=== PATIENT | male | born 1940 | race Caucasian/White ===

== ENCOUNTER 2016-03-13 16:19 | Emergency (ER) | payer OTHER, MEDICARE ==
[2015-10-27 11:49] VITALS: Ht 180.3 cm; Wt 92.1 kg
[~2016-03-13] VITALS: Ht 180.3 cm; Wt 92.1 kg
[~2016-03-13 16:19] MED LIST: AMIT75TA2 PO; ASPI81TA2 PO; ATOR40TA68 PO; CORCR10 PO; DILT240C94 PO; GLU850 PO; HYDR12.55 PO; LEVO50TA77 PO; NPH,100V SUBCUT; VALS320T10 PO
[2016-03-13 16:36] VITALS: BP 110/60; PULSE 76; RESP 14; TEMP 98.9; O2SAT 98
[2016-03-13] MEDS ORDERED: ACETAMINOPHEN 325 MG TABLET PO ONE (16:45)
[2016-03-13 17:34] LABS: ANION GAP 6 (5-15); CALCIUM 9.1 mg/dL (8.4-11.0); CHLORIDE 105 mmol/L (98-107); CREATININE 1.62 mg/dL (0.55-1.30); GLUCOSE 178 mg/dL (70-99); HEMATOCRIT 37.4 % (36-54); HEMOGLOBIN 13.2 g/dL (14.0-18.0); MEAN CORPUSCULAR HEMOGLOBIN 32 pg (27-31); MEAN CORPUSCULAR HGB CONC 35 % (32-36); MEAN CORPUSCULAR VOLUME 90 fL (79.0-98.0); POTASSIUM 4.2 mmol/L (3.5-5.1); RED BLOOD CELL COUNT(AUTO) 4.17 MIL/uL (4.2-6.2); RED CELL DISTRIBUTION WIDTH 13.6 % (9.0-15.0); SODIUM SERUM 138 mmol/L (136-145); UREA NITROGEN, BLOOD 23 mg/dL (8-21); WHITE BLOOD COUNT (AUTO) 17.4 K/uL (4.8-10.8)
[2016-03-13 17:39] LABS: ALANINE AMINOTRANSFERASE 22 U/L (12-78); ALBUMIN 3.3 g/dL (3.4-4.8); ASPARTATE AMINOTRANSFERASE 21 U/L (10-37); TOTAL BILIRUBIN 0.6 mg/dL (0.0-1.0); TOTAL PROTEIN, SERUM 6.7 g/dL (6.4-8.3)
[2016-03-13 18:05] LABS: ATYPICAL LYMPHOCYTES % 0 % (0-0); BAND % (MANUAL) 1 % (0-6); BASOPHILS % (MANUAL) 0 % (0-2); EOSINOPHILS % (MANUAL) 0 % (0-7); LYMPHOCYTES % (MANUAL) 15 % (20-46); MONOCYTES % (MANUAL) 6 % (0-11)
[2016-03-13 18:12] LABS: PLATELET COUNT (AUTO) 206 K/uL (130-430)
[2016-03-13 19:10] VITALS: BP 150/72; PULSE 83; RESP 16; TEMP 98.9; O2SAT 98
== END 2016-03-13 19:10 | disposition home or self-care (01) ==
LOC: SED 16:19
DX: S42.001A Fracture of unspecified part of right clavicle, initial encounter for closed fracture (principal); S22.31XA Fracture of one rib, right side, initial encounter for closed fracture; E11.9 Type 2 diabetes mellitus without complications; D72.829 Elevated white blood cell count, unspecified; R51 Headache; I10 Essential (primary) hypertension; Z79.82 Long term (current) use of aspirin; Z86.79 Personal history of other diseases of the circulatory system; Z79.4 Long term (current) use of insulin; W10.9XXA Fall (on) (from) unspecified stairs and steps, initial encounter; Y93.01 Activity, walking, marching and hiking; Y92.89 Other specified places as the place of occurrence of the external cause; Y99.8 Other external cause status
CPT/HCPCS: 36415; 70450-TC; 71100; 73030; 80053; 84484; 85007; 85027; 93005; 99285

== ENCOUNTER 2016-06-22 15:45 | Outpatient (CLI) | payer OTHER, MEDICARE ==
[~2016-06-22 15:45] MED LIST changes: -GLU850 PO; -HYDR12.55 PO; -VALS320T10 PO
[2016-06-22 16:19] LABS: HEMOGLOBIN 13.8 g/dL (14.0-18.0); WHITE BLOOD COUNT (AUTO) 12.5 K/uL (4.8-10.8)
[2016-06-22 16:22] LABS: HEMATOCRIT 40.8 % (36-54); MEAN CORPUSCULAR HEMOGLOBIN 31 pg (27-31); MEAN CORPUSCULAR HGB CONC 34 % (32-36); MEAN CORPUSCULAR VOLUME 92 fL (79.0-98.0); RED BLOOD CELL COUNT(AUTO) 4.42 MIL/uL (4.2-6.2); RED CELL DISTRIBUTION WIDTH 12.6 % (9.0-15.0)
[2016-06-22 16:35] LABS: PLATELET COUNT (AUTO) 170 K/uL (130-430)
[2016-06-22 17:29] LABS: ATYPICAL LYMPHOCYTES % 0 % (0-0); BAND % (MANUAL) 0 % (0-6); BASOPHILS % (MANUAL) 0 % (0-2); EOSINOPHILS % (MANUAL) 2 % (0-7); LYMPHOCYTES % (MANUAL) 25 % (20-46); MONOCYTES % (MANUAL) 13 % (0-11)
== END 2016-06-22 20:50 | disposition home or self-care (01) ==
LOC: SLB 15:45
DX: D69.1 Qualitative platelet defects (principal)
CPT/HCPCS: 36415; 85007; 85027

== ENCOUNTER 2020-04-05 16:02 | Emergency (ER) | payer OTHER, MEDICARE, SELFPAY ==
[~2020-04-05] VITALS: Ht 180.3 cm; Wt 75.7 kg
[2020-04-05 16:02] VITALS: BP_SYST 165
[~2020-04-05 16:02] MED LIST changes: +ASPI-1155 PO; -ASPI81TA2 PO; -LEVO50TA77 PO; +SYN50 PO
[2020-04-05] MEDS ORDERED: NACL 0.9% 1,000 ML IV ONE (18:30)
[2020-04-05 18:33] LABS: BASOPHILS % (AUTO) 0.2 % (0.0-2.0); EOSINOPHILS # (AUTO) 0.1 K/uL (0.0-0.4); EOSINOPHILS % (AUTO) 0.4 % (0.0-4.0); HEMOGLOBIN 13.7 g/dL (14.0-18.0); LYMPHOCYTES # (AUTO) 1.2 K/uL (1.0-5.5); LYMPHOCYTES % (AUTO) 9.5 % (20.5-51.5); MEAN CORPUSCULAR HEMOGLOBIN 31 pg (27-31); MEAN CORPUSCULAR HGB CONC 33 % (32-36); MEAN CORPUSCULAR VOLUME 93 fL (79.0-98.0); MONOCYTES # (AUTO) 1.1 K/uL (0.0-1.0); MONOCYTES % (AUTO) 8.4 % (1.7-9.3); NEUTROPHILS # (AUTO) 10.3 K/uL (1.8-7.7); NEUTROPHILS % (AUTO) 81.5 % (40.0-70.0); RED BLOOD CELL COUNT(AUTO) 4.41 MIL/uL (4.2-6.2); RED CELL DISTRIBUTION WIDTH 13.6 % (9.0-15.0); WHITE BLOOD COUNT (AUTO) 12.7 K/uL (4.8-10.8)
[2020-04-05 18:38] LABS: ANION GAP 2 (5-15); CALCIUM 8.8 mg/dL (8.4-11.0); CHLORIDE 104 mmol/L (98-107); CREATININE 1.91 mg/dL (0.55-1.30); GLUCOSE 134 mg/dL (70-99); SODIUM SERUM 135 mmol/L (136-145); UREA NITROGEN, BLOOD 28 mg/dL (8-21)
[2020-04-05 18:43] LABS: ALANINE AMINOTRANSFERASE 17 U/L (12-78); ALBUMIN 3.1 g/dL (3.4-4.8); ASPARTATE AMINOTRANSFERASE 19 U/L (10-37); TOTAL BILIRUBIN 0.6 mg/dL (0.0-1.0)
[2020-04-05 18:52] LABS: PROTHROMBIN TIME 10.3 SECS (9.5-12.5)
[2020-04-05 19:11] LABS: BILIRUBIN,URINE NEGATIVE (NEGATIVE); BLOOD, URINE NEGATIVE (NEGATIVE); CLARITY/URINE CLEAR (CLEAR); COLOR,URINE YELLOW (YELLOW); GLUCOSE,URINE NEGATIVE (NEGATIVE); KETONES,URINE NEGATIVE (NEGATIVE); LEUKOCYTE ESTERASE ,URINE NEGATIVE (NEGATIVE); NITRITE, URINE NEGATIVE (NEGATIVE); PH,URINE 7.5 (5.0-8.0); PROTEIN URINE NEGATIVE (NEGATIVE)
[2020-04-05 19:51] LABS: PLATELET COUNT (AUTO) 173 K/uL (130-430)
[2020-04-05 21:28] VITALS: BP_SYST 152
== END 2020-04-05 21:28 | disposition home or self-care (01) ==
LOC: SED 16:02
DX: N20.1 Calculus of ureter (principal); R10.32 Left lower quadrant pain; I10 Essential (primary) hypertension; E11.29 Type 2 diabetes mellitus with other diabetic kidney complication; N28.9 Disorder of kidney and ureter, unspecified; E78.5 Hyperlipidemia, unspecified; E03.9 Hypothyroidism, unspecified; Z79.899 Other long term (current) drug therapy; Z79.82 Long term (current) use of aspirin; Z20.822 Contact with and (suspected) exposure to COVID-19
CPT/HCPCS: 36415; 71045; 76376; 80053; 81003; 82962; 83605; 85025; 85610-TC; 85730-TC; 87040-TC; 93005; 96360; 99285

== ENCOUNTER 2022-01-02 07:36 | Inpatient (IN) | payer OTHER, MEDICARE ==
[~2022-01-02] VITALS: Ht 177.8 cm; Wt 59.0 kg
--- NOTE | 2022-01-02 07:38 | NUR ---
BIB EMS FROM HOME AFTR FALL WHILE GETTING OUT OF BED. PLACED IN BED. REPORT GIVEN TO ODNNA OCASIO.
[2022-01-02 07:40] VITALS: BP_SYST 142
--- NOTE | 2022-01-02 07:40 | NUR ---
GEOFF Badillo at bedside examining patient.
[2022-01-02] MEDS ORDERED: BACITRACIN 1 GM OINT TP ONE (07:45)
[2022-01-02] MEDS ORDERED: ASPIRIN 81 MG TAB.CHEW PO ONE (07:45)
--- NOTE | 2022-01-02 07:50 | NUR ---
PATIENT BIBA TO ER FROM HOME C/O LEFT HIP PAIN S/P FALL TRYING TO GET UP TO GO TO THE BATHROOM, AAOX4 HX OF HTN AND DM, PATIENT DENIES SOB DENIES C/P AWAITING FOR EDP FOR INITIAL ASSESSMENT.
--- NOTE | 2022-01-02 08:09 | NUR ---
EDP SEEN PATIENT WITH ORDER KALPESH OUT. IV, INSERTED, PATIENT ON OFFICE LEAD, WOUND CLEANSED, BLOOD DRAWN , WILL CONTINUE TO MONITOR.
[2022-01-02 08:25] LABS: ANION GAP 5 (5-15); BASOPHILS # (AUTO) 0.1 K/uL (0.0-0.2); BASOPHILS % (AUTO) 0.6 % (0.0-2.0); CALCIUM 9.2 mg/dL (8.4-11.0); CHLORIDE 102 mmol/L (98-107); CREATININE 2.65 mg/dL (0.55-1.30); EOSINOPHILS # (AUTO) 0.2 K/uL (0.0-0.4); EOSINOPHILS % (AUTO) 1.9 % (0.0-4.0); GLUCOSE 176 mg/dL (70-99); HEMATOCRIT 27.7 % (36-54); HEMOGLOBIN 9.2 g/dL (14.0-18.0); LYMPHOCYTES # (AUTO) 1.1 K/uL (1.0-5.5); LYMPHOCYTES % (AUTO) 11.3 % (20.5-51.5); MEAN CORPUSCULAR HEMOGLOBIN 31 pg (27-31); MEAN CORPUSCULAR HGB CONC 33 % (32-36); MEAN CORPUSCULAR VOLUME 92 fL (79.0-98.0); MONOCYTES # (AUTO) 0.9 K/uL (0.0-1.0); MONOCYTES % (AUTO) 9.3 % (1.7-9.3); NEUTROPHILS # (AUTO) 7.5 K/uL (1.8-7.7); NEUTROPHILS % (AUTO) 76.9 % (40.0-70.0); RED BLOOD CELL COUNT(AUTO) 3.01 MIL/uL (4.2-6.2); UREA NITROGEN, BLOOD 50 mg/dL (8-21); WHITE BLOOD COUNT (AUTO) 9.8 K/uL (4.8-10.8)
[2022-01-02 08:33] LABS: ALANINE AMINOTRANSFERASE 15 U/L (12-78); ALBUMIN 2.5 g/dL (3.4-4.8); ASPARTATE AMINOTRANSFERASE 17 U/L (10-37); TOTAL BILIRUBIN 0.5 mg/dL (0.0-1.0)
[2022-01-02 08:52] LABS: PLATELET COUNT (AUTO) 210 K/uL (130-430)
--- NOTE | 2022-01-02 09:05 | NUR ---
covid swab obtained and sent to lab.
[2022-01-02] MEDS ORDERED: NACL 0.9% 1,000 ML IV ONE (09:30)
[2022-01-02] MEDS ORDERED: MORPHINE 2 MG/ML INJ. SYRINGE IVP PRN ×2 (09:45)
[2022-01-02] MEDS ORDERED: DOCUSATE SODIUM 100 MG CAPSULE PO PRN (09:45)
[2022-01-02] MEDS ORDERED: MUPIROCIN 2% TOPICAL OINTMENT 22 GM NS PRN (09:45)
[2022-01-02] MEDS ORDERED: POTASSIUM CHLORIDE 20 MEQ TAB.PRT.SR PO PRN (09:45)
[2022-01-02] MEDS ORDERED: ACETAMINOPHEN 325 MG TABLET PO PRN (09:45)
[2022-01-02] MEDS ORDERED: ONDANSETRON HCL 4 MG/2 ML VIAL IVP PRN (09:45)
[2022-01-02] MEDS ORDERED: LORazepam 2 MG/ML VIAL IVP PRN (09:45)
[2022-01-02] MEDS ORDERED: MAGNESIUM SULFATE 50 ML IV PRN (09:45)
[2022-01-02] MEDS ORDERED: ZOLPIDEM TARTRATE 5 MG TABLET PO PRN (09:45)
--- NOTE | 2022-01-02 09:58 | NUR ---
Admit bed requested Patient will be admitted to care of . Admitted to [facility] unit. Diagnosis HIP FX Inpatient (Yes or No) YES Observation (Yes or No) NO Orientation concerns or request close to nursing station (Yes or No) NO Covid Status PENDING On vent or bipap NO Isolation requirements NO Needs a sitter NO From Home (Yes or if No enter name of facility) HOME Requires Dialysis (Yes or No) NO Med Rec Completed (Yes of No) YES
--- NOTE | 2022-01-02 10:08 | NUR ---
admitting physician at bedside for initial assessment, will continue to monitor.
--- NOTE | 2022-01-02 11:00 | NUR ---
patient is back from ct, remains in bed on cardiac cath lab manager.
--- NOTE | 2022-01-02 12:28 | NUR ---
PATIENT REMAINS IN BED, ON TOOL SETTER, WILL CONTINUE TO MONITOR.
[2022-01-02] MEDS ORDERED: DEXTROSE 50% JECT 50 ML DISP.SYRIN IVP PRN (12:45)
[2022-01-02] MEDS ORDERED: IPRATROPIUM/ALBUTEROL SULFATE 3 ML AMPUL.NEB (DUONEB) INH PRN (12:45)
--- NOTE | 2022-01-02 13:00 | NUR ---
patient refuses day at this time, because his urologyst will need to be informed.
--- NOTE | 2022-01-02 15:09 | NUR ---
Patient will be admitted to care of Dr Díaz. Admitted to unit. Will go to room . Belongings list completed. Complete and up to date summary report printed. SBAR report to be given at bedside with opportunity for questions.
--- NOTE | 2022-01-02 15:12 | NUR ---
report given to j luis Wellington
--- NOTE | 2022-01-02 16:47 | NUR ---
receive the patient from [facility] the emergency room nurse in a stable condition with admitting diagnosis of left hip fracture aox4 / no sign and symptoms of respiratory distress . will continue to monitor
--- NOTE | 2022-01-02 17:10 | NUR ---
md stubbs made rounds made some orders . noted and carried out
[2022-01-02] MEDS: INSULIN LISPRO SLIDING SCALE 100 UNITS/ML, 3 ML VIAL (humaLOG) SUBCUT PRN ×2 (18:32→20:39)
[2022-01-02] MEDS: D5NS 1,000 ML IV SCH ×2 (18:42→22:55)
--- NOTE | 2022-01-02 18:50 | NUR ---
will endorse to process camera operator rn for continuity of care
[2022-01-02 20:00] VITALS: BP_SYST 152
[2022-01-02] MEDS: DILTIAZEM HCL 240 MG CAP.SR.24H PO SCH (20:36)
[2022-01-02] MEDS: ASPIRIN 81 MG TAB.CHEW PO SCH (20:36)
[2022-01-02] MEDS: AMITRIPTYLINE HCL 25 MG TABLET (ELAVIL) PO SCH (20:36)
[2022-01-02] MEDS: CARVEDILOL 3.125 MG TABLET (COREG) PO SCH (20:37)
[2022-01-02] MEDS: HEPARIN SODIUM,PORCINE 5,000 UNITS/ML VIAL SUBCUT SCH (20:40)
[2022-01-02] MEDS ORDERED: CARVEDILOL PHOSPHATE 10 MG CPMP.24HR ( COREG CR) PO SCH (21:00)
[2022-01-03] VITALS: BP_SYST 148
[2022-01-03] MEDS: LEVOTHYROXINE SODIUM 0.05 MG TABLET PO SCH (06:19)
--- NOTE | 2022-01-03 06:44 | NUR ---
Shift Summary: patient is AAOX3-4. vitals are stable. a5vdyiv done during shift. day care done. patient updated on plan of care. patient states he has no questions or concerns at this time. will endorse to oncoming nurse. call light within reach, bed set to low, locked, and alarm on.
[2022-01-03 07:00] VITALS: BP_SYST 132
--- NOTE | 2022-01-03 07:09 | NUR ---
receive the patient in a stable condition with admitting diagnosis of left hip fracture . aox4 . no complain of pain at this time . no sign and symptoms of respiratory distress . will continue to monitor
[2022-01-03 07:21] LABS: ALANINE AMINOTRANSFERASE 9 U/L (12-78); ANION GAP 7 (5-15); ASPARTATE AMINOTRANSFERASE 17 U/L (10-37); CHLORIDE 105 mmol/L (98-107); CREATININE 2.62 mg/dL (0.55-1.30); GLUCOSE 191 mg/dL (70-99); TOTAL BILIRUBIN 0.6 mg/dL (0.0-1.0); UREA NITROGEN, BLOOD 48 mg/dL (8-21)
[2022-01-03 07:52] LABS: BASOPHILS # (AUTO) 0.1 K/uL (0.0-0.2); BASOPHILS % (AUTO) 0.6 % (0.0-2.0); EOSINOPHILS # (AUTO) 0.1 K/uL (0.0-0.4); EOSINOPHILS % (AUTO) 1.3 % (0.0-4.0); HEMATOCRIT 24.8 % (36-54); HEMOGLOBIN 8.5 g/dL (14.0-18.0); LYMPHOCYTES # (AUTO) 1.2 K/uL (1.0-5.5); LYMPHOCYTES % (AUTO) 12.6 % (20.5-51.5); MEAN CORPUSCULAR HEMOGLOBIN 31 pg (27-31); MEAN CORPUSCULAR HGB CONC 34 % (32-36); MEAN CORPUSCULAR VOLUME 91 fL (79.0-98.0); MONOCYTES # (AUTO) 1.1 K/uL (0.0-1.0); MONOCYTES % (AUTO) 11.9 % (1.7-9.3); NEUTROPHILS # (AUTO) 6.7 K/uL (1.8-7.7); NEUTROPHILS % (AUTO) 73.6 % (40.0-70.0); RED BLOOD CELL COUNT(AUTO) 2.72 MIL/uL (4.2-6.2); RED CELL DISTRIBUTION WIDTH 13.9 % (9.0-15.0); WHITE BLOOD COUNT (AUTO) 9.1 K/uL (4.8-10.8)
[2022-01-03] MEDS: CARVEDILOL 3.125 MG TABLET (COREG) PO SCH ×2 (08:20→21:37)
[2022-01-03] MEDS: HEPARIN SODIUM,PORCINE 5,000 UNITS/ML VIAL SUBCUT SCH (08:21)
[2022-01-03] MEDS: D5NS 1,000 ML IV SCH ×2 (08:26→21:37)
[2022-01-03 09:38] LABS: PLATELET COUNT (AUTO) 168 K/uL (130-430)
[2022-01-03 12:53] LABS: BILIRUBIN,URINE NEGATIVE (NEGATIVE); BLOOD, URINE 3+ (NEGATIVE); CLARITY/URINE SL CLOUDY (CLEAR); COLOR,URINE RED (YELLOW); GLUCOSE,URINE TRACE (NEGATIVE); KETONES,URINE TRACE (NEGATIVE); LEUKOCYTE ESTERASE ,URINE NEGATIVE (NEGATIVE); NITRITE, URINE POSITIVE (NEGATIVE); PH,URINE 7.5 (5.0-8.0); PROTEIN URINE 3+ (NEGATIVE); UROBILINOGEN,URINE 0.2 (0.2-1.0)
[2022-01-03 13:06] LABS: RBC,URINE 20-50 /HPF (0-3)
[2022-01-03 13:07] LABS: BACTERIA,URINE FEW /HPF (None Seen)
[2022-01-03] MEDS: INSULIN LISPRO SLIDING SCALE 100 UNITS/ML, 3 ML VIAL (humaLOG) SUBCUT PRN (14:52)
--- NOTE | 2022-01-03 18:58 | NUR ---
will endorse to shift commander rn for left hip hemiarthroplasty tomorrow . consent has been signed . NPO midnight . no complain at this time . no signa and symptoms of respiratory distress .
--- NOTE | 2022-01-03 19:30 | NUR ---
OPENING NOTE Received report from day shift. Pt is awake lying in bed with at bedside. No s/s of respiratory distress. Breathing even and unlabored on RA. Ng catheter intact and draining by gravity. IV site intact and patent with fluids running at ordered rate. Fall and safety precautions in place with bed in lowest position, bed alarm on, and call light within reach
[2022-01-03 20:00] VITALS: BP_SYST 152
[2022-01-03] MEDS: DILTIAZEM HCL 240 MG CAP.SR.24H PO SCH (21:37)
[2022-01-03] MEDS: AMITRIPTYLINE HCL 25 MG TABLET (ELAVIL) PO SCH (21:37)
[2022-01-03] MEDS: ASPIRIN 81 MG TAB.CHEW PO SCH (21:37)
--- NOTE | 2022-01-04 00:15 | NUR ---
ROUNDS Pt is lying in bed, eyes closed. No s/s of acute distress. NPO for surgery in the AM. Fall and safety checks in place.
--- NOTE | 2022-01-04 02:00 | NUR ---
BLOOD TRANSFUSION CONSENT Received consent from Conner (son) for 1 unit of PRBCs. , Angelina (person to notify), did not answer
[2022-01-04 02:30] VITALS: BP_SYST 142
--- NOTE | 2022-01-04 05:35 | NUR ---
BLOOD TRANSFUSION 1 UNIT OF PRBCS INITIATED. VSS.
[2022-01-04] MEDS: LEVOTHYROXINE SODIUM 0.05 MG TABLET PO SCH (06:26)
--- NOTE | 2022-01-04 06:44 | NUR ---
CLOSING NOTE Pt awake lying in bed. No s/s of respiratory distress. Breathing even and unlabored on RA. 1 unit of PRBCs transfusing. Pt is NPO for surgery today. All needs met throughout shift. Fall and safety precautions in place with bed in lowest position, bed alarm on, and call light within reach
[2022-01-04 06:45] LABS: BASOPHILS # (AUTO) 0.1 K/uL (0.0-0.2); BASOPHILS % (AUTO) 0.7 % (0.0-2.0); EOSINOPHILS # (AUTO) 0.2 K/uL (0.0-0.4); EOSINOPHILS % (AUTO) 2.5 % (0.0-4.0); HEMOGLOBIN 7.2 g/dL (14.0-18.0); LYMPHOCYTES # (AUTO) 1.2 K/uL (1.0-5.5); LYMPHOCYTES % (AUTO) 14.5 % (20.5-51.5); MEAN CORPUSCULAR HEMOGLOBIN 31 pg (27-31); MEAN CORPUSCULAR HGB CONC 34 % (32-36); MEAN CORPUSCULAR VOLUME 92 fL (79.0-98.0); MONOCYTES # (AUTO) 1.2 K/uL (0.0-1.0); MONOCYTES % (AUTO) 13.6 % (1.7-9.3); NEUTROPHILS # (AUTO) 5.9 K/uL (1.8-7.7); NEUTROPHILS % (AUTO) 68.7 % (40.0-70.0); RED BLOOD CELL COUNT(AUTO) 2.32 MIL/uL (4.2-6.2); RED CELL DISTRIBUTION WIDTH 13.9 % (9.0-15.0); WHITE BLOOD COUNT (AUTO) 8.6 K/uL (4.8-10.8)
[2022-01-04 07:00] VITALS: BP_SYST 106
[2022-01-04 07:03] LABS: ANION GAP 6 (5-15); CALCIUM 7.6 mg/dL (8.4-11.0); CHLORIDE 105 mmol/L (98-107); CREATININE 2.44 mg/dL (0.55-1.30); GLUCOSE 209 mg/dL (70-99); UREA NITROGEN, BLOOD 45 mg/dL (8-21)
[2022-01-04] MEDS ORDERED: BUPIVACAINE /PF 0.25% 30 ML VIAL INJ ONE (07:30)
[2022-01-04] MEDS ORDERED: LIDOCAINE 1% 10 MG/ML, 20 ML MDV INJ ONE (07:30)
[2022-01-04] MEDS ORDERED: TRANEXAMIC ACID 1,000 MG/10 ML VIAL IV ONE (07:30)
[2022-01-04] MEDS ORDERED: ONDANSETRON HCL 4 MG/2 ML VIAL IVP ONE (07:30)
[2022-01-04] MEDS ORDERED: MIDAZOLAM HCL 5 MG/5 ML VIAL IVP ONE (07:30)
[2022-01-04] MEDS ORDERED: fentaNYL CITRATE 250 MCG/5 ML AMP IV ONE (07:30)
[2022-01-04] MEDS ORDERED: NS 1000 ML IV.SOLN IV ONE (07:30)
[2022-01-04] MEDS ORDERED: CEFAZOLIN 2 GM IVPB PREMIX 50 ML IV ONE (07:30)
[2022-01-04] MEDS ORDERED: BUPIVACAINE /EPINEPHRINE/PF 0.25% 30 ML VIAL INJ ONE (07:30)
[2022-01-04] MEDS ORDERED: SUGAMMADEX SODIUM 200 MG/2 ML VIAL IV ONE (07:30)
[2022-01-04] MEDS ORDERED: DESFLURANE 15 MIN GAS INH ONE (07:30)
[2022-01-04] MEDS ORDERED: ROCURONIUM BROMIDE 10 MG/ML (ZEMURON) IV ONE (07:30)
[2022-01-04] MEDS ORDERED: PROPOFOL 200MG/ 20ML VIAL (DIPRIVAN) IV ONE (07:30)
[2022-01-04 07:34] LABS: PLATELET COUNT (AUTO) 172 K/uL (130-430)
[2022-01-04 07:35] LABS: HEMATOCRIT 21.3 % (36-54)
[2022-01-04] MEDS ORDERED: ACETAMINOPHEN I.V. 1000 MG 100 ML IV ONE (08:40)
[2022-01-04] MEDS ORDERED: METOCLOPRAMIDE HCL 10 MG/2 ML VIAL IVP PRN (08:45)
[2022-01-04] MEDS ORDERED: LABETALOL 100 MG/ 20ML VIAL IVP PRN (08:45)
[2022-01-04] MEDS ORDERED: HYDROmorphone 1 MG/ML INJ. CARTRIDGE IVP PRN ×2 (08:45)
[2022-01-04] MEDS ORDERED: NACL 0.9% 1,000 ML IV SCH (08:45)
[2022-01-04] MEDS ORDERED: MIDAZOLAM HCL 2 MG/2 ML VIAL (VERSED) IVP PRN (08:45)
[2022-01-04] MEDS ORDERED: MEPERIDINE HCL/PF 25 MG/ML DISP.SYRIN IVP PRN (08:45)
[2022-01-04] MEDS ORDERED: hydrALAZINE HCL 20 MG/ML VIAL IVP PRN (08:45)
[2022-01-04] MEDS: CARVEDILOL 3.125 MG TABLET (COREG) PO SCH ×2 (09:00→21:00)
[2022-01-04 12:00] VITALS: BP_SYST 140
[2022-01-04] MEDS: INSULIN LISPRO SLIDING SCALE 100 UNITS/ML, 3 ML VIAL (humaLOG) SUBCUT PRN ×2 (13:07→18:20)
[2022-01-04] MEDS: SOD FERRIC GLUC COMPLEX/SUC 125 MG in NS 100 ML IV SCH (13:08)
[2022-01-04] MEDS: D5NS 1,000 ML IV SCH (13:10)
[2022-01-04 13:45] LABS: HEMATOCRIT 32.3 % (36-54); HEMOGLOBIN 11.1 g/dL (14.0-18.0)
[2022-01-04] MEDS ORDERED: ceFAZolin SODIUM 2 GM in D5W 100 ML IV SCH (14:00)
--- NOTE | 2022-01-04 14:03 | NUR ---
PHYSICAL THERAPY ORDER RECEIVED. PATIENT IS TOO SLEEPY TO PARTICIPATE IN THE EVALUATION TODAY. WILL ATTEMPT TOMORROW.
[2022-01-04] MEDS: ceFAZolin SODIUM 1 GM in D5W 50 ML IV SCH (15:29)
[2022-01-04] MEDS ORDERED: EPOETIN ALFA 10,000 UNITS/ML VIAL SUBCUT ONE (17:00)
[2022-01-04 20:00] VITALS: BP_SYST 116
[2022-01-04] MEDS: ASPIRIN 81 MG TAB.CHEW PO SCH (21:00)
[2022-01-04] MEDS: DILTIAZEM HCL 240 MG CAP.SR.24H PO SCH (21:00)
[2022-01-04] MEDS: AMITRIPTYLINE HCL 25 MG TABLET (ELAVIL) PO SCH (21:00)
[2022-01-05] MEDS: D5NS 1,000 ML IV SCH ×2 (00:15→09:10)
[2022-01-05 00:35] VITALS: BP_SYST 126
[2022-01-05] MEDS: INSULIN LISPRO SLIDING SCALE 100 UNITS/ML, 3 ML VIAL (humaLOG) SUBCUT PRN ×2 (01:06→18:31)
[2022-01-05] MEDS: ceFAZolin SODIUM 1 GM in D5W 50 ML IV SCH ×2 (01:52→14:56)
[2022-01-05 06:43] LABS: BASOPHILS % (AUTO) 0.2 % (0.0-2.0); EOSINOPHILS % (AUTO) 0.3 % (0.0-4.0); HEMATOCRIT 31.6 % (36-54); HEMOGLOBIN 10.8 g/dL (14.0-18.0); LYMPHOCYTES # (AUTO) 0.6 K/uL (1.0-5.5); LYMPHOCYTES % (AUTO) 7.3 % (20.5-51.5); MEAN CORPUSCULAR HEMOGLOBIN 30 pg (27-31); MEAN CORPUSCULAR HGB CONC 34 % (32-36); MEAN CORPUSCULAR VOLUME 89 fL (79.0-98.0); MONOCYTES # (AUTO) 1.2 K/uL (0.0-1.0); MONOCYTES % (AUTO) 13.2 % (1.7-9.3); NEUTROPHILS # (AUTO) 6.9 K/uL (1.8-7.7); RED BLOOD CELL COUNT(AUTO) 3.57 MIL/uL (4.2-6.2); RED CELL DISTRIBUTION WIDTH 16.3 % (9.0-15.0); WHITE BLOOD COUNT (AUTO) 8.8 K/uL (4.8-10.8)
[2022-01-05 06:56] LABS: ANION GAP 7 (5-15); CALCIUM 7.1 mg/dL (8.4-11.0); CHLORIDE 108 mmol/L (98-107); CREATININE 2.16 mg/dL (0.55-1.30); GLUCOSE 173 mg/dL (70-99); UREA NITROGEN, BLOOD 42 mg/dL (8-21)
[2022-01-05] MEDS: LEVOTHYROXINE SODIUM 0.05 MG TABLET PO SCH (07:02)
[2022-01-05 08:00] VITALS: BP_SYST 156; BP_SYST 167
[2022-01-05 08:37] VITALS: BP_SYST 126
[2022-01-05] MEDS: HEPARIN SODIUM,PORCINE 5,000 UNITS/ML VIAL SUBCUT SCH ×2 (09:00→21:28)
[2022-01-05 09:17] LABS: PLATELET COUNT (AUTO) 118 K/uL (130-430)
[2022-01-05] MEDS: CARVEDILOL 3.125 MG TABLET (COREG) PO SCH ×2 (10:06→21:26)
[2022-01-05 11:56] VITALS: BP_SYST 138
[2022-01-05] MEDS: SOD FERRIC GLUC COMPLEX/SUC 125 MG in NS 100 ML IV SCH (12:00)
--- NOTE | 2022-01-05 15:31 | NUR ---
Attending Md Dr Díaz was called to inform him that pt is lethargic and urine bag is dark red. Left a voice message.
[2022-01-05 16:59] VITALS: BP_SYST 161
[2022-01-05 19:25] VITALS: BP_SYST 143
--- NOTE | 2022-01-05 19:25 | NUR ---
PM ASSESSMENT; -Pt is lethargic, arousable upon voice. NO s/s any pain,sob,or any acute distress noted. IV site patent drsg cdi. Left hip old small blood stained drsg, no active bleeding noted. DIscussed poc, all safety measures with pt & spouse at bedside, spouse verbalized understanding. Fall precaution in place. Ng cath w/ gravity drains dark blood noted. Call light w/in reach, bed alarmed, near Nurses' station, side rails x3. Cont to monitor pt.
--- NOTE | 2022-01-05 20:13 | NUR ---
PATIENT MUCH BETTER THIS EVENING IMPROVING GREATLY FROM THIS MORNING. CONTINUE'S WITH RESPIRATORY TREATMENT'S STEROIDS. CONTINUES TO COUGH MUCH LESS ABLE TO GET OUT OF BED WALK AROUND WITH OUT DIFFICULTY. CONTINUE PLAN OF CARE UNTIL PATIENT ABLE TO GO BACK TO FACILITY. COMPLIANT AND COOPERATIVE. FAMILY TO BRING [facility] TOMORROW. PATIENT DOES NOT HAVE MUCH CONTACT WITH FAMILY WHEN FAMILY NOTIFIED NEVER ASKED ABOUT PATIENT. REQUESTING SUPERVISOR FINE GRADING TO TALK TO FELIZ'S NOT WANT TO GO BACK TO FACILITY.
--- NOTE | 2022-01-05 20:38 | NUR ---
CHARTED ON WRONG PATIENT CROSS OUT NOTE WRONG PATIENT
--- NOTE | 2022-01-05 20:39 | NUR ---
POST OP DAY ON PATIENT CONTINUES TO BE LETHARGIC WAKING UP MORE AT END OF SHIFT ABLE TO TAKE SMALL AMOUNT OF DINNER AND DRINKING ENSURE. AT BEDSIDE THROUGH OUT DAY URINE FROM PHAM CONTINUES TO BE BLOODY PATIENTS DR AWARE OF BLOODY URINE AND TOLD FAMILY MEMBER SON NOT TO BE ALARMED WELL NURSE. PLAN OF CARE GET PATIENT MOVING TOMORROW UP OUT OF BED TOLERATED
[2022-01-05] MEDS: AMITRIPTYLINE HCL 25 MG TABLET (ELAVIL) PO SCH (21:00)
[2022-01-05] MEDS: DILTIAZEM HCL 240 MG CAP.SR.24H PO SCH (21:25)
[2022-01-05] MEDS: ASPIRIN 81 MG TAB.CHEW PO SCH (21:25)
--- NOTE | 2022-01-05 21:43 | NUR ---
ROUNDS; -Pt is resting in bed comfortably. Pt is little more awaked but still lethargic. Spouse is at bedside. No s/s any pain,sob,or any acute distress noted. Gave all meds with applesauce, pt tolerated well. IVF infusing well. bed alarmed, side rails x3, call light w/in reach. Cont to monitor pt.
--- NOTE | 2022-01-06 00:25 | NUR ---
ROUNDS; -Pt is asleep in bed comfortably. No s/s any pain,sob,or any acute distress noted. No visitor is at bedside this time. IVF infusing well. bed alarmed, side rails x3, call light w/in reach. Cont to monitor pt.
[2022-01-06 00:57] VITALS: BP_SYST 156
[2022-01-06] MEDS: ceFAZolin SODIUM 1 GM in D5W 50 ML IV SCH ×2 (03:19→15:06)
[2022-01-06] MEDS: D5NS 1,000 ML IV SCH ×2 (03:19→15:07)
--- NOTE | 2022-01-06 04:30 | NUR ---
ROUNDS; -Pt is asleep in bed comfortably. No s/s any pain,sob,or any acute distress noted. IVF infusing well. bed alarmed, side rails x3, call light w/in reach. Cont to monitor pt.
[2022-01-06] MEDS: LEVOTHYROXINE SODIUM 0.05 MG TABLET PO SCH (06:30)
[2022-01-06 06:47] LABS: BASOPHILS % (AUTO) 0.4 % (0.0-2.0); EOSINOPHILS # (AUTO) 0.1 K/uL (0.0-0.4); EOSINOPHILS % (AUTO) 1.4 % (0.0-4.0); HEMATOCRIT 30.1 % (36-54); HEMOGLOBIN 10.3 g/dL (14.0-18.0); LYMPHOCYTES % (AUTO) 11.7 % (20.5-51.5); MEAN CORPUSCULAR HEMOGLOBIN 30 pg (27-31); MEAN CORPUSCULAR HGB CONC 34 % (32-36); MEAN CORPUSCULAR VOLUME 88 fL (79.0-98.0); MONOCYTES # (AUTO) 1.2 K/uL (0.0-1.0); MONOCYTES % (AUTO) 14.7 % (1.7-9.3); NEUTROPHILS # (AUTO) 5.9 K/uL (1.8-7.7); NEUTROPHILS % (AUTO) 71.8 % (40.0-70.0); RED CELL DISTRIBUTION WIDTH 15.9 % (9.0-15.0); WHITE BLOOD COUNT (AUTO) 8.2 K/uL (4.8-10.8)
[2022-01-06 07:00] LABS: ANION GAP 5 (5-15); CALCIUM 7.3 mg/dL (8.4-11.0); CHLORIDE 110 mmol/L (98-107); CREATININE 2.05 mg/dL (0.55-1.30); GLUCOSE 153 mg/dL (70-99); UREA NITROGEN, BLOOD 39 mg/dL (8-21)
--- NOTE | 2022-01-06 07:10 | NUR ---
CLOSING NOTES; -Pt is resting. NO s/s any pain,sob,or any acute distress noted. IV site patent drsg cdi. Left hip old small blood stained drsg, no active bleeding noted. Fall precaution in place. Ng cath w/ gravity drains dark blood noted. Call light w/in reach, bed alarmed, near Nurses' station, side rails x3. Endorsed to Con THOMPSON to [facility] care.
--- NOTE | 2022-01-06 07:20 | NUR ---
OPENING NOTE RECEIVED SBAR FROM NIGHT RN, PATIENT IN BED, RESPIRATIONS EVEN, NON LABORED,BED IN LOW AND LOCKED POSITION CALL LIGHT WITHIN REACH, BED ALARM ON
[2022-01-06 08:00] VITALS: BP_SYST 160
[2022-01-06] MEDS: CARVEDILOL 3.125 MG TABLET (COREG) PO SCH ×2 (08:58→20:26)
[2022-01-06] MEDS: HEPARIN SODIUM,PORCINE 5,000 UNITS/ML VIAL SUBCUT SCH (08:58)
[2022-01-06] MEDS ORDERED: cloNIDine HCL 0.1 MG TABLET PO PRN (09:00)
[2022-01-06 09:01] LABS: PLATELET COUNT (AUTO) 122 K/uL (130-430)
[2022-01-06] MEDS ORDERED: CARVEDILOL 3.125 MG TABLET (COREG) PO ONE (09:15)
[2022-01-06] MEDS: INSULIN LISPRO SLIDING SCALE 100 UNITS/ML, 3 ML VIAL (humaLOG) SUBCUT PRN ×2 (11:00→17:24)
--- NOTE | 2022-01-06 11:01 | NUR ---
day removed day per order. patient denies any pain or discomfort.
[2022-01-06 11:25] VITALS: BP_SYST 160
--- NOTE | 2022-01-06 14:30 | NUR ---
[facility] SPOKE WITH ALLY MURPHY, SHE STATED THAT THE INTAKE TO [facility] IS NOT AVAILABLE, NO ONE AT THE ACCEPTING FACILITY IS AVAILABLE TO MAKE ARRANGEMENTS
[2022-01-06 16:05] VITALS: BP_SYST 158
--- NOTE | 2022-01-06 17:14 | NUR ---
RETENTION PATIENT UNABLE TO VOID POST PHAM REMOVAL. 319 ML ON BLADDER SCAN. PAGED DR ALONZO
--- NOTE | 2022-01-06 17:31 | NUR ---
INFORMED DR DEJESUS THAT PATIENT IS UNABLE TO VOID. PER DR DEJESUS WAIT 3 HOURS AND SCAN AGAIN, IF STILL UNABLE TO VOID INSERT NEW PHAM
--- NOTE | 2022-01-06 19:24 | NUR ---
closing note Provide SBAR to night RN. Patient in bed, respirations even, non labored, bed in low and locked position, call light within reach, bed alarm on. IVF's running as ordered. Endorsed bladder scan and possible day insertion to night RN.
[2022-01-06] MEDS: ASPIRIN 81 MG TAB.CHEW PO SCH (20:25)
[2022-01-06] MEDS: AMITRIPTYLINE HCL 25 MG TABLET (ELAVIL) PO SCH (20:26)
[2022-01-06] MEDS: DILTIAZEM HCL 240 MG CAP.SR.24H PO SCH (20:27)
--- NOTE | 2022-01-06 20:54 | NUR ---
rn notes tried inserting a normal day cath, unsuccessful multiple times. will try with a koude day.
[2022-01-06 21:34] VITALS: BP_SYST 154
[2022-01-07] MEDS: ceFAZolin SODIUM 1 GM in D5W 50 ML IV SCH ×2 (01:54→14:17)
[2022-01-07] MEDS: D5NS 1,000 ML IV SCH ×2 (01:54→14:45)
[2022-01-07] MEDS: LEVOTHYROXINE SODIUM 0.05 MG TABLET PO SCH (06:02)
[2022-01-07 06:28] LABS: MEAN CORPUSCULAR HEMOGLOBIN 30 pg (27-31); MEAN CORPUSCULAR HGB CONC 34 % (32-36)
[2022-01-07 06:58] LABS: ANION GAP 2 (5-15); CALCIUM 8.1 mg/dL (8.4-11.0); CHLORIDE 110 mmol/L (98-107); GLUCOSE 174 mg/dL (70-99); UREA NITROGEN, BLOOD 42 mg/dL (8-21)
--- NOTE | 2022-01-07 06:58 | NUR ---
rn notes patient remains on room air, no sob noted, VSS. new day cath in with good output, red output in color. Able to swallow meds with no complication. Cleaned and turned.
--- NOTE | 2022-01-07 07:05 | NUR ---
RECEIVED REPORT ON PATIENT FROM DONNA BEGUM, ASSUMED CARE, AND STARTED ASSESSMENT. ASSUMED CARE, AND STARTED ASSESSMENT. PATIENT WAS SOUND ASLEEP BUT AROUSABLE. WHEN AWAKENED HE WAS PLEASANT, COOPERATIVE AND ANSWERED QUESTIONS APPROPRIATELY. HE DENIED ANY PAIN OR DISCOMFORT AT THIS TIME. WILL CONTINUE TO MONITOR AND ASSESS FOR SAFETY AND COMFORT.
[2022-01-07 07:15] LABS: HEMATOCRIT 29.4 % (36-54); MEAN CORPUSCULAR VOLUME 88 fL (79.0-98.0); RED BLOOD CELL COUNT(AUTO) 3.36 MIL/uL (4.2-6.2); RED CELL DISTRIBUTION WIDTH 15.7 % (9.0-15.0); WHITE BLOOD COUNT (AUTO) 7.7 K/uL (4.8-10.8)
[2022-01-07 07:19] LABS: PLATELET COUNT (AUTO) 121 K/uL (130-430)
[2022-01-07 08:00] VITALS: BP_SYST 159
[2022-01-07 09:16] LABS: BASOPHILS % (MANUAL) 0 % (0-2); EOSINOPHILS % (MANUAL) 6 % (0-7); LYMPHOCYTES % (MANUAL) 13 % (20-46); MONOCYTES % (MANUAL) 10 % (0-11)
[2022-01-07] MEDS: CARVEDILOL 3.125 MG TABLET (COREG) PO SCH ×2 (09:58→21:12)
[2022-01-07 12:00] VITALS: BP_SYST 147
--- NOTE | 2022-01-07 13:37 | NUR ---
PATIENT REFUSED TO PARTICIPATE WITH PHYSICAL THERAPY TODAY DUE TO PAIN EVEN AFTER PREMEDICATION. RN AWARE.
[2022-01-07 16:00] VITALS: BP_SYST 159
--- NOTE | 2022-01-07 17:51 | NUR ---
PATIENT IV WAS LEAKING PROFUSELY. IV WAS DISCONTINUED AND A NEW WAS INSERTED TO THE RIGHT ANTECUBETAL REGION.
[2022-01-07] MEDS: INSULIN LISPRO SLIDING SCALE 100 UNITS/ML, 3 ML VIAL (humaLOG) SUBCUT PRN ×2 (18:09→22:08)
[2022-01-07 20:00] VITALS: BP_SYST 179
[2022-01-07] MEDS: DILTIAZEM HCL 240 MG CAP.SR.24H PO SCH (21:11)
[2022-01-07] MEDS: ASPIRIN 81 MG TAB.CHEW PO SCH (21:12)
[2022-01-07] MEDS: AMITRIPTYLINE HCL 25 MG TABLET (ELAVIL) PO SCH (21:13)
[2022-01-08] VITALS (7 sets, daily range): BP systolic 146–165
[2022-01-08] MEDS: ceFAZolin SODIUM 1 GM in D5W 50 ML IV SCH ×2 (01:35→14:34)
[2022-01-08] MEDS: LEVOTHYROXINE SODIUM 0.05 MG TABLET PO SCH (06:03)
--- NOTE | 2022-01-08 06:32 | NUR ---
Received pt a/ox4. No c/o pain. Started a new PIV due to previous being occluded. No further issues at this time.
[2022-01-08] MEDS: CARVEDILOL 3.125 MG TABLET (COREG) PO SCH ×2 (08:29→20:10)
--- NOTE | 2022-01-08 11:49 | NUR ---
Nutrition follow up Admitting Diagnosis Hip fracture Reviewed Pertinent Medical/Surgical Hx: EMR Medical History Comment: Per EMR review, PMH of HTN, T2DM, dyslipidemia, cardiac arrythmia, prostate CA in remission (Dx 15 yrs ago). Pt admitted for L hip pain s/p mechanical fall. Dx of hip fracture, vasomotor nephropathy, anemia. Per MD notes, also found w/ ARF w/ distended bladder, CKD Stage 4 (no HD d/t stable renal function). Pt underwent L hip hemiarthroplasty procedure on 01/04, POD 0. Subjective Information Bedside visit deferred due to high workload. Per EMR review, variable PO intake ranging from a few bites of food to 100% of meals. Bran score 16, no skin issues, LBM 01/06. Plan is for DC to SNF. Current Diet Order/Nutrition Support: CCHO x4 days PO intake: 0-100%, variable intake is not likely meeting estimated nutrition needs yet Usual diet at home: regular Food allergies: NKFA Difficulty With: swallowing Pertinent Medications: Lispro ISS, Synthroid Pertinent Labs: BG 153 H, HbA1c 5.6 WNL Anthropometrics: Height: 5'10" Weight: 130# (58.9 Kg) Body Mass Index: 18.65 kg/m2, underweight --geriatric %IBW: 78 [place]/Adjusted Body Weight: 166#/75.5kg IBW. Recent Weight Change: No - ? Unintentional wt loss of 20#/13% wt change w/in a year. Estimated nutrition needs: Estimated Energy Expenditure (kcals/day) 2362-8855 (30-35kcal/kg IBW d/t wt gain promotion, Sx healing) Estimated Protein Required (g/day) 91-113 (1.2-1.5g/kg IBW d/t wt gain promotion, Sx healing) Estimated Fluid Required (l/day) Defer to MD d/t CKD. Problem/Etiology/Signs/Symptoms Inadequate oral intake R/T decreased appetite d/t general weakness and difficulty swallowing AEB variable PO intake ranging from bites of food to 100% of meal. (Ongoing) Nutrition-related knowledge deficit R/T undesirable food choices, unrestricted diet at home AEB elevated BG and POC BG levels. (Ongoing) Expected Outcomes/Goals Monitor appetite and PO intakes w/ goal of meeting >75% of estimated nutritional needs, labs trending WNL, normal GI function, and skin integrity/wt maintenance. Dietitian Recommendations * Continue CCHO diet, Glucerna TID, Lino BID (supplements yield 840kcal/day, 35g protein/day) * Continue to encourage good PO intakes, 1:1 feeding assistance Follow Up: moderate risk 3-5 days
--- NOTE | 2022-01-08 11:59 | NUR ---
Dietitian Recommendations * Continue [facility] diet, Glucerna TID, Lino BID (supplements yield 840kcal/day, 35g protein/day) * Continue to encourage good PO intakes, 1:1 feeding assistance Please refer to nutrition follow up for details. PS, RD
[2022-01-08] MEDS: INSULIN LISPRO SLIDING SCALE 100 UNITS/ML, 3 ML VIAL (humaLOG) SUBCUT PRN ×3 (12:20→21:18)
[2022-01-08 13:05] LABS: BASOPHILS % (AUTO) 0.6 % (0.0-2.0); EOSINOPHILS # (AUTO) 0.2 K/uL (0.0-0.4); EOSINOPHILS % (AUTO) 2.8 % (0.0-4.0); HEMATOCRIT 28.2 % (36-54); HEMOGLOBIN 9.7 g/dL (14.0-18.0); LYMPHOCYTES # (AUTO) 0.7 K/uL (1.0-5.5); LYMPHOCYTES % (AUTO) 11.2 % (20.5-51.5); MEAN CORPUSCULAR HEMOGLOBIN 30 pg (27-31); MEAN CORPUSCULAR HGB CONC 35 % (32-36); MEAN CORPUSCULAR VOLUME 88 fL (79.0-98.0); MONOCYTES # (AUTO) 0.6 K/uL (0.0-1.0); MONOCYTES % (AUTO) 8.9 % (1.7-9.3); NEUTROPHILS % (AUTO) 76.5 % (40.0-70.0); RED BLOOD CELL COUNT(AUTO) 3.22 MIL/uL (4.2-6.2); RED CELL DISTRIBUTION WIDTH 15.8 % (9.0-15.0); WHITE BLOOD COUNT (AUTO) 6.5 K/uL (4.8-10.8)
[2022-01-08 13:14] LABS: PLATELET COUNT (AUTO) 176 K/uL (130-430)
[2022-01-08 13:17] LABS: ANION GAP 4 (5-15); CALCIUM 7.4 mg/dL (8.4-11.0); CHLORIDE 106 mmol/L (98-107); CREATININE 1.85 mg/dL (0.55-1.30); GLUCOSE 244 mg/dL (70-99); UREA NITROGEN, BLOOD 44 mg/dL (8-21)
--- NOTE | 2022-01-08 18:25 | NUR ---
FAXEDOVER PATIENTS INFO TO [facility] HISTORY AND PHYSICAL SURGICAL NOTES DISCHARGE SUMMARY RECENT PROGESSS NOTES RECENT LABS WITH MED LIST
[2022-01-08] MEDS: AMITRIPTYLINE HCL 25 MG TABLET (ELAVIL) PO SCH (20:09)
[2022-01-08] MEDS: DILTIAZEM HCL 240 MG CAP.SR.24H PO SCH (20:09)
[2022-01-08] MEDS: ASPIRIN 81 MG TAB.CHEW PO SCH (20:11)
[2022-01-09] VITALS: BP_SYST 149
[2022-01-09] MEDS: ceFAZolin SODIUM 1 GM in D5W 50 ML IV SCH ×2 (01:21→15:01)
[2022-01-09] MEDS: LEVOTHYROXINE SODIUM 0.05 MG TABLET PO SCH (06:18)
[2022-01-09 09:16] LABS: ALANINE AMINOTRANSFERASE 6 U/L (12-78); ALBUMIN 1.6 g/dL (3.4-4.8); ANION GAP 6 (5-15); ASPARTATE AMINOTRANSFERASE 23 U/L (10-37); CALCIUM 8.3 mg/dL (8.4-11.0); CHLORIDE 107 mmol/L (98-107); CREATININE 1.91 mg/dL (0.55-1.30); GLUCOSE 164 mg/dL (70-99); TOTAL BILIRUBIN 0.4 mg/dL (0.0-1.0); UREA NITROGEN, BLOOD 49 mg/dL (8-21)
[2022-01-09] MEDS: CARVEDILOL 3.125 MG TABLET (COREG) PO SCH (10:32)
[2022-01-09 12:23] VITALS: BP_SYST 164
[2022-01-09] MEDS: INSULIN LISPRO SLIDING SCALE 100 UNITS/ML, 3 ML VIAL (humaLOG) SUBCUT PRN ×2 (12:30→18:18)
--- NOTE | 2022-01-09 12:43 | NUR ---
Discharge Planning: DCP arranged transport to [place] [phone] with [facility] [phone] BLS 2:30pm. DCP made CM and nurse aware and pt packet taken to nurse station. Disposition 03
--- NOTE | 2022-01-09 13:08 | NUR ---
Spoke to patient's and son and both agreed to transfer to the [facility] for rehab.
[2022-01-09 15:23] VITALS: BP_SYST 164
[2022-01-09 17:56] VITALS: BP_SYST 140
--- NOTE | 2022-01-10 07:54 | NUR ---
PHYSICAL THERAPY CO-SIGN The Physical Therapy Progress Notes documented by Slack Cooper have been reviewed. Reviewed/Co-Signed by: Fco Chapa Documentation Done by:DINO OLEARY PTA Addendum: 01/10/22 at 0754 by Fco Chapa PT Amended: Links added.
== END 2022-01-09 19:00 | DRG 521 ==
LOC: SED 07:36 → SMU 09:45 → STU 01-04 12:00 → SMU 01-05 09:58
PROVIDERS: ADMIT General Practice; ATTEND General Practice
PROC: 30233N1 Transfusion of Nonautologous Red Blood Cells into Peripheral Vein, Percutaneous Approach (ICD-10-PCS; 2022-01-04)
PROC: 0TPB70Z Removal of Drainage Device from Bladder, Via Natural or Artificial Opening (ICD-10-PCS; 2022-01-04)
PROC: 0SRS0JZ Replacement of Left Hip Joint, Femoral Surface with Synthetic Substitute, Open Approach (ICD-10-PCS; principal; 2022-01-04 07:42)
DX: S72.002A Fracture of unspecified part of neck of left femur, initial encounter for closed fracture (principal); N17.0 Acute kidney failure with tubular necrosis; E44.0 Moderate protein-calorie malnutrition; N18.4 Chronic kidney disease, stage 4 (severe); Z68.1 Body mass index [BMI] 19.9 or less, adult; D63.8 Anemia in other chronic diseases classified elsewhere; E03.9 Hypothyroidism, unspecified; E78.5 Hyperlipidemia, unspecified; W18.39XA Other fall on same level, initial encounter; I12.9 Hypertensive chronic kidney disease with stage 1 through stage 4 chronic kidney disease, or unspecified chronic kidney disease; Z20.822 Contact with and (suspected) exposure to COVID-19; E11.22 Type 2 diabetes mellitus with diabetic chronic kidney disease; E11.40 Type 2 diabetes mellitus with diabetic neuropathy, unspecified; C61 Malignant neoplasm of prostate; Y93.89 Activity, other specified; Y92.89 Other specified places as the place of occurrence of the external cause; Y99.8 Other external cause status; Z79.4 Long term (current) use of insulin; Z79.82 Long term (current) use of aspirin; Z79.899 Other long term (current) drug therapy; Z85.46 Personal history of malignant neoplasm of prostate
CPT/HCPCS: 36415; 71045; 72192-TC; 73502; 76376; 80048; 80053; 81000; 82962; 83036; 83735; 83880; 84443; 84484; 85007; 85018; 85025; 85027; 86886; 86900; 86901; 86920; 87081; 88305; 88311; 93005; 97110-GP; 97116-GP; 97530-GP; 99285; G0378; J0131; J0690; J0885; J1644; J2001; J2250; J2270; J2405; J2704; J2916; J3010; J3490; J7030; J7042; J7050; J7060; P9021